=== PATIENT | female | born 1940 | race Caucasian/White ===

== ENCOUNTER → 2017-01-05 | Outpatient (CLI) | payer MEDICARE, OTHER ==
[~2017-01-05] MED LIST: 3N1 COMMODE MC; ASPI-781 PO; CPM MC; METO50TA16 PO; MULT-860 PO; OXYC5CAP17 PO; ROSU5TAB5 PO; TELM80TA4 PO; TRAM50TA2 PO; WALK1EAC23 MC
--- NOTE | 2017-01-05 14:07 | RADRPT ---
PROCEDURE: XR right knee . CLINICAL INDICATION: Knee pain TECHNIQUE: AP weightbearing, lateral weightbearing and sunrise views are available for review. COMPARISON: 06/28/2016 FINDINGS: There is a total knee replacement. There is no evidence of loosening of the prosthesis. The osseous structures are normal in mineralization, architecture and alignment No acute fracture or dislocation is seen.No osseous lesions are identified. The soft tissues are unremarkable . there is a small sup rapatellar joint effusion IMPRESSION: Unremarkable total knee replacement. Small suprapatellar joint effusion Unchanged from the previous examination RPTAT: [facility] .Aakash Cheng MD, MD Date Time Electronically viewed and signed by .Aakash Cheng MD, on 01/05/2017 14:06 .B/
== END | disposition home or self-care (01) ==
LOC: HKI 11:35
PROVIDERS: ATTEND Orthopaedic Surgery
DX: Z47.1 Aftercare following joint replacement surgery (principal); Z96.651 Presence of right artificial knee joint
CPT/HCPCS: 73562; G0463